=== PATIENT | male | born 1960 | race African-American/Black ===

== ENCOUNTER 2020-03-26 11:31 | Day surgery (SDC) | payer OTHER ==
--- NOTE | 2020-03-25 08:52 | NUR ---
RECEIVED CALL FROM OR. D-DIMER RESULTS REVIEWED BY ANESTHESIOLOGIST DR DONNELLY. NO FURTHER ORDERS AT THIS TIME.
--- NOTE | 2020-03-25 09:17 | NUR ---
PREOP LABS DRAWN ON 03-18-20. RESULTS REVIEWED WITH OR AND DR QUIÑONES. OK TO USE FOR SURGERY 03-26-20. NO FURTHER ORDERS AT THIS TIME.
[~2020-03-26] VITALS: Ht 175.3 cm; Wt 134.7 kg
[~2020-03-26 11:31] MED LIST: ASPIR 8181 MG PO
[2020-03-26 12:27] VITALS: BP 139/85
[2020-03-26] MEDS ORDERED: ZIPSOR25 MG PO (15:25)
[2020-03-26] MEDS ORDERED: GEMFIBROZIL600 MG PO (15:26)
[2020-03-26] MEDS ORDERED: TOPROL XL100 MG PO (15:26)
[2020-03-26] MEDS ORDERED: LASIX40 MG PO (15:26)
[2020-03-26] MEDS ORDERED: PRILOSEC OTC20 M1 PO (15:27)
[2020-03-26] MEDS ORDERED: ALDACTONE25 MG PO (15:27)
[2020-03-26] MEDS ORDERED: PRO30 PO (15:27)
[2020-03-26] MEDS ORDERED: NOR10T PO (15:28)
--- NOTE | 2020-03-26 21:04 | NUR ---
PT C/O ABDOMINAL PAIN AND NAUSEA. GAVE PT MORPHINE IVP FOR PAIN AND ZOFRAN IVP FOR NAUSEA. PT TOLERATED IT WELL. WILL CONTINUE TO MONITOR.
--- NOTE | 2020-03-26 21:37 | NUR ---
PT RESTING IN BED. SURGICAL WOUND WITH DRESSING NOTED ON THE LEFT KNEE. POLAR MACHINE AND TASIA WOUND VAC NOTED ON THE LEFT KNEE. NO C/O PAIN THUS FAR. IV INTACT ON THE RAC. MADE PT COMFORTABLE. PLACED CALL LIGHT WITH IN REACH. WILL CONTINUE TO MONITOR.
[2020-03-26 22:08] VITALS: BP 124/82
--- NOTE | 2020-03-26 22:23 | NUR ---
RECEIVED PT FROM OR. PT ADMIT FOR OSTEOARTHRITIS LEFT KNEE. S/P LEFT TOTAL KNEE REPLACEMENT. PT IS A/O X4, VERBAL RESPONSIVE. LUNG SOUND CLEAR BILATERAL, NO COUGH, NO SOB. PT IS ON 2L/MIN O2 VIA NC, PO2 93%, BOWEL SOUND PRESENT ALL 4 QUADRANTS, NO DISTENTION, NO TENDER. PEDAL PULSE PRESENT BOTH FEET. DRY LEFT KNEE COVER WITH DRY DRESSING. AND TASIA WOUND VAC IN PLACE. POLAR MACHINE AT TOP OF KNEE. IV AT RIGHT AC, NO LEAKING, NO INFILTRATION, ALL ADLS ASSIST, ALL NEED MET, CALL LIGHT IN REACH, WILL CONTINUE TO MONITOR.
--- NOTE | 2020-03-27 01:44 | NUR ---
PT RESTING WITH EYES CLOSED. NO DISTRESS AND DISCOMFORT NOTED. WILL CONTINUE TO MONITOR.
--- NOTE | 2020-03-27 02:47 | NUR ---
PT C/O LEFT KNEE PAIN. GAVE PT OXYCODONE PO. PT TOLERATED IT WELL. WILL CONTINUE TO MONITOR.
[2020-03-27 05:38] VITALS: BP 141/89
--- NOTE | 2020-03-27 06:45 | NUR ---
PT QUIET AND RESTING. DRESSING ON THE LEFT KNEE WITH POLAR MACHINE AND TASIA WOUND VAC C/D/I. C/O 02/14 PAIN. DENIES NEED FOR PAIN MEDICATION THUS FAR. MADE PT COMFORTABLE. WILL ENDORSE TO THE AM NURSE ACCORDINGLY.
--- NOTE | 2020-03-27 07:30 | NUR ---
RECIEVED REPORT FROM [facility] NURSE. PATIENT CURRENTLY AWAKE ALERT AND ORIENTED X 4. PATIENT IS STATUS POST LEFT TOTAL KNEE REPLACEMENT ON 03-26-20. POLAR MACHINE CURRENTLY PLACED TO LEFT KNEE AND TASIA WOUND VAC ALSO IN PLACE. LR INFUSING AT 80cc/HOUR TO THE RAC. PATIENT IS CURRENTLY ON 2 LITER NASAL CANNULA SATURATING AT 93%. NO REPORT OF PAIN AT THIS TIME. FALL PROTOCOL IN PLACE. BED IN THE LOW POSITION. CALL LIGHT WITHIN REACH. BED ALARM ACTIVATED.
[2020-03-27 08:18] VITALS: BP 126/80
[2020-03-27 09:17] LABS: CALCIUM 7.6 mg/dL (8.5-10.1); CARBON DIOXIDE 24.7 mmol/L (21-32); CHLORIDE SERUM 99 mmol/L (98-107); CREATININE SERUM 0.8 mg/dL (0.7-1.3); GFR1 > 60 mL/min; GLUCOSE SERUM 132 mg/dL (74-106); POTASSIUM SERUM 4.2 mmol/L (3.5-5.1); SODIUM SERUM 132 mmol/L (136-145)
[2020-03-27 09:53] LABS: BASOPHIL % 0.3 % (0-2); PLATELET COUNT 146 x10^3mcL (130-400)
[2020-03-27 14:03] VITALS: BP 126/80
--- NOTE | 2020-03-27 15:45 | NUR ---
DISCHARGE EDUCATION AND PRESCRIPTIONS PROVIDED TO PATIENT. PRESCRIPTION FOR PAIN MEDICATION PHYSICALLY HANDED TO PATIENT AT BEDSIDE AT [address] QUIÑONES. PATIENT VERBALIZES UNDERSTANDING OF POST OP CARE FOR LEFT KNEE REPLACEMENT. ALL QUESTIONS AND CONCERNS ADDEESSED. IV CATH REMOVED INTACT IN PREPARATION FOR DISCHARGE. NO REPORT OF PAIN AT THIS TIME. PATIENT ACCOMPANIED TO THE LOBBY IN WHEELCHAIR BY TWO RNS AND DIRECTOR MARKETING. PATIENT RECIEVED FROM HOSPITAL BY .
== END 2020-03-27 15:45 | disposition home or self-care (01) ==
LOC: OR 11:31 → MU 15:45 → OR 03-27 15:45
PROVIDERS: ATTEND Orthopaedic Surgery
DX: M17.12 Unilateral primary osteoarthritis, left knee (principal); I10 Essential (primary) hypertension; E66.9 Obesity, unspecified; Z68.38 Body mass index [BMI] 38.0-38.9, adult; Z79.899 Other long term (current) drug therapy
CPT/HCPCS: 97112-GP; C1713; C1776; G0378; J0690; J1170; J1885; J2175; J2250; J2270; J2405; J2704; J3010; J3490; J7030; J7120; Q0092

== ENCOUNTER 2020-05-18 08:50 | Inpatient (IN) | payer OTHER ==
[~2020-05-18] VITALS: Ht 180.3 cm; Wt 127.0 kg
--- NOTE | 2020-05-18 07:36 | NUR ---
DR. QUIÑONES WAS MADE AWARE THAT THE LAB AND COVID19 RESULT AND H&P HAVE BEEN UNABLE TO OBTAINED FOR THE PATIENT YET.
[~2020-05-18 08:50] MED LIST changes: +ALDACTONE25 MG PO; +GEMFIBROZIL600 MG PO; +LASIX40 MG PO; +NOR10T PO; +PRILOSEC OTC20 M1 PO; +PRO30 PO; +TOPROL XL100 MG PO; +ZIPSOR25 MG PO
[2020-05-18 09:09] VITALS: BP 120/76
[2020-05-18 10:07] LABS: PLATELET COUNT 224 x10^3mcL (130-400); RED CELL DISTRIBUTION WIDTH 15.6 % (11.5-14.5)
[2020-05-18 10:16] LABS: C REACTIVE PROTEIN 0.4 mg/dL (<=0.9); CALCIUM 8.7 mg/dL (8.5-10.1); CARBON DIOXIDE 22.2 mmol/L (21-32); CHLORIDE SERUM 102 mmol/L (98-107); CREATININE SERUM 0.8 mg/dL (0.7-1.3); GFR1 > 60 mL/min; GLUCOSE SERUM 121 mg/dL (74-106); POTASSIUM SERUM 3.8 mmol/L (3.5-5.1); SODIUM SERUM 139 mmol/L (136-145)
[2020-05-18 10:43] LABS: ERYTHROCYTE SED RATE 36 mm/hr (0-20)
[2020-05-18 11:53] LABS: rbc morphology (normal/abnorm) NORMAL (NORMAL)
--- NOTE | 2020-05-18 15:05 | NUR ---
RECEIVED PT VIA BED FROM O/R, ACCOMPANIED BY 3 RNs. PT A/A/O X 4, CALM, COOPERATIVE TO CARE; PT STATES THAT HE DRINKS A "TALL GLASS OF VODKA WITH (JUICE) EVERY NIGHT. HR 122, DENIES CHEST PAIN OR DISCOMFORT AT THIS TIME. LUNGS CTAB, CHEST RISING EVENLY, 2LNC, 95%, NO ACUTE RESPIRATORY DISTRESS NOTED. POOR PO INTAKE > 3 DAYS. PT W/ GENERALIZED WEAKNESS, AMBULATORY @ BASELINE, FALL RISK PROTOCOL IN PLACE. PT IS S/P I/D OF L KNEE W/ HARDWARE CHANGE; SX INCISION TO L KNEE W/ MULTIPLE APRYL W/ TASIA WOUND VAC INSTALLED (NO DRAINAGE AT THIS TIME), DRESSINGS CDI, ALL SECURED W/ POLAR ICE MACHINE; PT C/O CONSTANT L KNEE SHARP PAIN 8/10, EXACERBATED BY MOVEMENT, RELIEVED BY PAIN MEDICATION. IV SITE RH 22G, CDI. ORIENTED PT TO ROOM, BED CONTROLS, CALL LIGHT SYSTEM. SIDE RAILS UP X 2, BED IN LOW POSITION. WILL CONTINUE TO MONITOR.
--- NOTE | 2020-05-18 16:04 | NUR ---
ALL PATIENT'S BELONGINGS INCLUDING WHEELCHAIR (EXCEPT THE CELL PHONE PATIENT IS HAVING WITH HIM NOW) WERE HANDED TO THE PATIENT'S , SABRA. ALSO, THE WAS INFORMED THE PATIENT WAS ADMITTED TO ROOM 235A ON MST UNIT.
--- NOTE | 2020-05-18 17:13 | NUR ---
P.T. NOTES RECEIVED P.T. EVAL ORDER, Pt REFUSED W/ P.T., STATES HE IS STILL IN A LOT OF PAIN, RN AWARE, Pt APPRECIATIVE; WILL FF UP TOMORROW, ALL LINES INTACT, BED ALARM ON, CALL LYLE, PHONE, TABLE IN REACH; Pt STATES "THERE IS NO WAY I AM GETTING UP TODAY"; AGREEABLE FOR TOMORROW.
--- NOTE | 2020-05-18 17:15 | NUR ---
NOTED THAT REGULAR DIET ORDER FOR PT STARTS 05/19/20 DINNER TIME; OBTAINED VERBAL ORDER FROM DR QUIÑONES TO CHANGE START DATE TO 05/18/20 DINNER TIME; ORDER NOTED AND CARRIED OUT.
--- NOTE | 2020-05-18 17:23 | NUR ---
PT C/O CONT L KNEE SHARP PAIN 8/10, THAT IS EXACERBATED BY MOVEMENT; PT GIVEN DILAUDID 1MG IVP; DARKENED ROOM, TURNED OFF TV, AND INSTRUCTED PT TO CLOSE EYES, DO DEEP BREATHING, AND TRY TO RELAX. WILL CONTINUE TO MONITOR.
--- NOTE | 2020-05-18 17:53 | NUR ---
PT IN BED, WATCHING TV AND HAVING DINNER; PT STATES THAT PAIN LEVEL TO L KNEE WENT DOWN TO 5/10, CONSTANT/SHARP AFTER GETTING DILAUDID 30 MINUTES AGO; TASIA WOUND VAC IN PLACE ALONG W/ POLAR ICE MACHINE. IV SITE TO RH 22G, CDI, LR RUNNING @ 80ML/HR. SIDE RAILS UP X 2, BED IN LOW POSITION, CALL LIGHT WITHIN REACH. WILL ENDORSE TO NOC SHIFT.
[2020-05-18 18:00] VITALS: BP 127/75
[2020-05-18 22:05] VITALS: BP 148/84
[2020-05-19 06:20] VITALS: BP 127/76
--- NOTE | 2020-05-19 07:10 | NUR ---
SEEN PATIENT AOX4, NOT IN DISTRESS, MEDSURG, PALPABLE PULSES, NO EDEMA, CTA ON BLF, NO SOB, +BS, VOIDS WTIH NO DYSURIA, GENERALIZED WEAKNESS, SURGICAL NCISION TO L KNEE WITH TASIA WOUND JACK AND POLAR ICE MACHINE IN PLACE, PAIN AT L KNEE 5/10. MEDICATED WITH DILAUDID. IV INTACT AND PATENT, NO REDNESS OR SWELLING AT RH. CALL LIGHT WITHIN REACH, BED AT LOWEST POSITION SIDE RAILS UP.
[2020-05-19 07:19] LABS: BASOPHIL % 0.4 % (0-2); PLATELET COUNT 173 x10^3mcL (130-400)
[2020-05-19 07:20] LABS: RED CELL DISTRIBUTION WIDTH 15.3 % (11.5-14.5)
[2020-05-19 07:22] LABS: CALCIUM 8.2 mg/dL (8.5-10.1); CARBON DIOXIDE 25.5 mmol/L (21-32); CHLORIDE SERUM 100 mmol/L (98-107); CREATININE SERUM 0.8 mg/dL (0.7-1.3); GFR1 > 60 mL/min; GLUCOSE SERUM 139 mg/dL (74-106); POTASSIUM SERUM 4.2 mmol/L (3.5-5.1); SODIUM SERUM 132 mmol/L (136-145)
[2020-05-19 07:25] LABS: ALBUMIN 2.4 g/dL (3.4-5.0); C REACTIVE PROTEIN 0.2 mg/dL (<=0.9)
--- NOTE | 2020-05-19 08:25 | NUR ---
MEDICATIONS GIVEN PER EMAR.
[2020-05-19 08:31] VITALS: BP 123/71
--- NOTE | 2020-05-19 10:04 | NUR ---
DILAUDID IVP GIVEN PER EMAR FOR LLE PAIN 05/17.
[2020-05-19 11:57] VITALS: BP 139/86
--- NOTE | 2020-05-19 12:12 | NUR ---
CALLED PHARMACIST AND SPOKE WITH VALENTINE BRYANT REGARDING CUBICIN. PER ANNETTE, THEY ARE MIXING THE CUBICIN AND WILL BRING IT UP .
--- NOTE | 2020-05-19 13:06 | NUR ---
CUBICIN IVPB INFUSING WELL AT 100CC/HR. NO REDNESS OR SWELLING.
--- NOTE | 2020-05-19 14:02 | NUR ---
NORCO PO GIVEN FOR LLE PAIN 05/17.
[2020-05-19 16:47] VITALS: BP 144/85
[2020-05-19 17:51] VITALS: BP 137/79
--- NOTE | 2020-05-19 19:29 | NUR ---
RECIEVED PT FROM PREVIOUS SHIFT NURSE. PT RESTING COMFORTABLY W/ HOB ELEVATED. PT AOX4, ABLE TO FOLLOW COMMANDS, DENIES DOTSON, N/V, DIZZINESS, OR PAIN, NO FACIAL DROOPING NOTED, SPEECH CLEAR, AND CALM AND COOPERATIVE. RR EVEN AND UNLABORED ON 2L/NC, CHEST RISING EQUALLY, DENEIS SOB OR DIFFICULTY BREATHING. DENIES CHEST PAIN OR PRESSURE. IV RH WNL, LR RUNNING AT 80ML/HR. SXI NOTED L KNEE W/ TASIA WOUND VAC, AND POLAR ICE MACHINE NOTED, NO INDICATION TO FILL AT THE MOMENT. BED IN LOWEST POSITION, SIDE RAILS UP X2, AND CALL LIGHT WITHIN REACH. WILL CONTINUE TO MONITOR.
[2020-05-19 19:54] VITALS: BP 144/77
--- NOTE | 2020-05-20 01:14 | NUR ---
PT RESTING COMFORTABLY IN BED, EASILY AROUSABLE. RR EVEN AND UNLABORED ON 2L/NC, CHEST RISING EQUALLY. NO SIGNS OF ACUTE CHANGE OR DISTRESS NOTED. BED IN LOWEST POSITION, SIDE RAILS UP X2, AND CALL LIGHT WITHIN REACH. WILL CONTINUE TO MONITOR.
[2020-05-20 04:48] VITALS: BP 143/78
--- NOTE | 2020-05-20 06:25 | NUR ---
PT RESTING COMFORTABLY IN BED, EASILY AROUSABLE. AOX4, ABLE TO FOLLOW COMMANDS, DENIES DOTSON, N/V, DIZZINESS, OR PAIN AT THE MOMENT, NO FACIAL DROOPING NOTED, SPEECH CLEAR, CALM AND COOPERATE W/ CARE. RR EVEN AND UNLABORED ON RA, CHEST RISING EQUALLY, DENIES SOB OR DIFFICLTY BREATHING. DENIES CHEST PAIN OR PRESSURE. IV RH WNL, NO ERYTHEMA, EDEMA, OR DRAINAGE. TASIA WOUND VAC NOTED TO L KNEE DRESSING CDI, POLAR ICE MACHINE IN PLACE. BED IN LOWEST POSITION, SIDE RAILS UP X2, AND CALL LIGHT WITHIN REACH. WILL CONTINUE TO MONITOR.
[2020-05-20 06:36] LABS: CHLORIDE SERUM 100 mmol/L (98-107); CREATININE SERUM 0.8 mg/dL (0.7-1.3); GFR1 > 60 mL/min; GLUCOSE SERUM 119 mg/dL (74-106); POTASSIUM SERUM 3.7 mmol/L (3.5-5.1); SODIUM SERUM 134 mmol/L (136-145)
[2020-05-20 06:45] LABS: BASOPHIL % 0.3 % (0-2); PLATELET COUNT 168 x10^3mcL (130-400); RED CELL DISTRIBUTION WIDTH 14.9 % (11.5-14.5)
--- NOTE | 2020-05-20 07:15 | NUR ---
RECEIVED REPORT FROM N[facility] RN. PATIENT AWAKE, A&OX4, RESTING IN BED. DISCUSSED PLAN OF CARE WITH PATIENT. PLAN FOR PAIN MANAGEMENT AND TO WORK WITH PT TODAY. CALL LIGHT AND BEDSIDE TABLE WITHIN REACH. WILL CONTINUE TO MONITOR.
[2020-05-20 07:30] VITALS: BP 129/83
--- NOTE | 2020-05-20 13:08 | NUR ---
PATIENT REMAINS A&OX4, VITALS STABLE, PATIENT GOT OOB AND AMBULATED WITH PHYSICAL THERAPY TODAY AND TOLERATED IT WELL, PATIENT WAS PREMEDICATED WITH DILAUDID IVP. PAIN MANAGED WITH NORCO Q6H AND DILAUDID FOR BREAKTHROUGH PAIN. NO OTHER CONCERNS. IV ABX INFUSED PER ORDE. WILL CONTINUE TO MONITOR
--- NOTE | 2020-05-20 15:00 | NUR ---
Initial Nutrition Assessment: 235A OFELIA BALDWIN 59M HR T: poor PO intake > 3 days Dx: left knee prosthetic joint infection PMHx: No H&P available. PSHx: Per operative report on (05/18): Left prosthetic knee debridement and implant retention Labs: (05/20) Na 134L, BG 119H, Ca 8.0L, H/H 10.5/32L Meds: Aspirin, Colace, Cubicin, Lactated Ringers, Lyrcia, Celebrex PRN Meds: Dilaudid, [place], Senokot, Tylenol, Zofran Diet: regular PO intake since admission: (05/19) B: 85, L: 95, D: 95 (05/20) B: 100 ; average PO intake 94% for 4 meals Ht: 180 cm / 5'11 Wt: 127 kg / 280 lbs BMI:39.1 Bed scale: 300 lbs IBW: 172 lbs / 78 kg %IBW: 163% ABW:199lbs / 90.5kg UBW: per pt, was told 257 at admission Age: 59 Food Allergies: NKFA Skin condition: Sx incision to L knee w/ multiple ruthy, dressings w/ hernando wound vac, secute in place w/ polar ice machine Min: 19 Edema: none noted Last BM: 05/18 Per H&P (none available at this time) RD Note (05/20): Pt was sitting with right leg off the bed during assessment. Bed scale weigh was 300 lbs. Per pt, the most recent weight he is aware of was 257 when the doctor told him at admission. Pt is not experiencing any GI distress. He does not have any issues chewing or swallowing. His appetite has been good but he is not able to eat a lot since he had the lap band procedure done 3 years ago. He takes Vitamin A, C, E and zinc supplements at home. He mentions that at home he is not able to eat much of scrambled eggs and some greens because it makes him feel uncomfortable with the lap band. Pt exercises with weights and cardio on a daily basis. Based on his average PO intake of 94%, he consumes 2534 kcal and 113 g protein. This meets his estimated energy and protein needs by 100%. Problem with: N/V/D/C: no per pt Problems with: Chewing: Swallowing: none per pt Current appetite: good per pt Recent wt change: none per pt %wt change: n/a Vitamin/Supplement use: Vitamin A, C, E, zinc Special diet at home: eats in small amounts d/t lap band Physical activity: exercise daily Nutrition education given (specify specific nutrition education and handout given): No education was given at this time. Food-drug interactions? Education given? n/a Estimated Nutritional Needs Based on adjusted body weight (90.5kg) Energy: 2262 - 2715 kcal/day (25-30 kcal/kg for maintenance) Protein: 72 - 90.5 g/day (0.8-1 g/kg for maintenance) Fluid: 2262 - 2715 mL/day (1 mL/kcal) Nutrition Diagnosis: Intervention 1. Recommend continue regular diet as tolerated. Monitor/Evaluate Goal: PO intake at least 75% of estimated needs Monitor: PO intake, Labs, GI function F/U in 3-5 days as moderate risk (05/23-)
--- NOTE | 2020-05-20 15:02 | NUR ---
1. Recommend continue regular diet as tolerated.
[2020-05-20 16:02] VITALS: BP 123/73
--- NOTE | 2020-05-20 16:10 | NUR ---
DIETITIAN CO-SIGN The Nutrition Notes documented by the Asphalt Roller Operator have been reviewed. Reviewed/Co-Signed by: Bethel Soto Documentation Done by: Keon Newell
--- NOTE | 2020-05-20 17:47 | NUR ---
Patient a&ox4, room air, vitals stable, voiding in urinal. pain managed with po norco and dilaudid ivp. patient reports 3/10 with current pain regimen. patient got OOB with physical therapy. plan for picc line placement. spoke with picc line nurse luis at [phone] and he is refusing to place picc line until MD signs the consent. will call dr. Vivas and inform. all concerns addressed. call light and bedside table within reach. needs attended.
--- NOTE | 2020-05-20 19:36 | NUR ---
PICC LINE NURSE AT BEDSIDE.
--- NOTE | 2020-05-20 19:36 | NUR ---
PT RESTING COMFORTABLY IN BED, EASILY AROUSABLE. A0X4, ABLE TO FOLLOW COMMANDS, NO FACIAL DROOPING NOTED, SPEECH CLEAR, DENIES DOTSON,N/V, DIZZINESS, OR PAIN AT THE MOMENT. PT CALM AND COOPERATIVE. RR EVEN AND UNLABORED ON RA, CHEST RISING EQUALLY, DENEIS SOB OR DIFFICULTY BREATHING, CHEST RISING EQUALLY. DENIES CHEST PAIN OR PRESSURE. IV RH WNL, LR RUNNING AT 80ML/HR. LLE S WOUND NOTED W/ TASIA WOUND VAC NOTED AND [facility] ICE MACHINE NOTED. PICC LINE INSERTION IN PLACE. BED IN LOWEST POSISTION, SIDE RAILS UP X2, AND CALL LIGHT WITHIN REACH. WILL CONTINUE TO MONITOR.
--- NOTE | 2020-05-20 19:51 | NUR ---
X-RAY PAGED FOR S/P PICC LINE INSERTION.
--- NOTE | 2020-05-20 20:09 | NUR ---
PICC LINE INSERTION COMPLETED, PICC NOTED TO [place] 2-LUMEN. PENDING CXR VERIFICATION.
[2020-05-20 20:33] VITALS: BP 149/87
--- NOTE | 2020-05-20 22:17 | NUR ---
NEW ORDERS RECIEVED FROM DR. GONZALEZ. SEE EMAR, WILL CARRY OUT ORDERS.
--- NOTE | 2020-05-20 22:17 | NUR ---
DR. QUIÑONES INFORMED OF CXR FOR PICC LINE VERIFICATION. OK TO USE PER DR. QUIÑONES.
--- NOTE | 2020-05-21 04:30 | NUR ---
PT RESTING COMFORTABLY IN BED, EASILY AROUSABLE. RR EVEN AND UNLABORED ON RA, CHEST RISING EQUALLY. LLE SXI W/ TASIA WOUND VAC NOTED, DRESSING CDI W/ POLAR ICE MACHINE NOTED. NO SIGNS OF ACUTE CHANGE OR DISTRESS NOTED. BED IN LOWEST POSITION, SIDE RAILS UP X2, AND CALL LIGHT WITHIN REACH. WILL CONTINUE TO MONITOR.
[2020-05-21 05:52] VITALS: BP 155/94
--- NOTE | 2020-05-21 06:36 | NUR ---
PT RESTING COMFORTABLY IN BED, EASILY AROUSABLE, AOX4, ABLE TO FOLLOW COMMANDS, SPEECH CLEAR, NO FACIAL DROOPING NOTED, DENIES DOTSON, N/V, DIZZINESS, OR PAIN AT THE MOMENT. RR EVEN AND UNLABORED ON RA, CHEST RISING EQUALLY, DENIES SOB OR DIFFICULTY BREATHING. DENIES CHEST PAIN OR PRESSURE. PICC LINE NOTED TO [place], BOTH PORTS PATENT, BLOOD RETURN VISIBLE IN BOTH PORTS, DRESSING CDI, NO ERYTHEMA, EDEMA, OR DRAINAGE NOTED, LR RUNNING AT 80ML/HR. SXI DRESSING NOTED TO LLE DRESSING CDI, TASIA WOUND DRESSING NOTED, AND POLAR ICE MACHINE AT BEDSIDE. ALL NEEDS MET THROUGHOUT THE SHIFT. BED IN LOWEST POSITION, SIDE RAILS UP X2, AND CALL LIGHT WITHIN REACH. WILL ENDORSE CARE TO ONCOMING SHIFT NURSE, AND WILL CONTINUE TO MONITOR.
[2020-05-21 08:08] LABS: CALCIUM 8.3 mg/dL (8.5-10.1); CARBON DIOXIDE 28.9 mmol/L (21-32); CHLORIDE SERUM 104 mmol/L (98-107); CREATININE SERUM 0.7 mg/dL (0.7-1.3); GFR1 > 60 mL/min; GLUCOSE SERUM 86 mg/dL (74-106); POTASSIUM SERUM 3.9 mmol/L (3.5-5.1); SODIUM SERUM 136 mmol/L (136-145)
--- NOTE | 2020-05-21 08:10 | NUR ---
RECEIVED REPORT FROM [facility] RN. PATIENT AWAKE, SITTING IN THE BED, "EXCITIED TO LEAVE TODAY". PATIENT RECEIVED PICC LINE OVERNIGHT. WIPES BROUGHT TO PATIENT TO CLEAN UP PER HIS REQUEST. DISCUSSED PLAN OF CARE WITH THE PATIENT. CALL LIGTH AND BEDSIDE TABLE WITHIN REACH. WILL CONTINUE TO MONITOR
[2020-05-21 08:31] LABS: BASOPHIL % 0.3 % (0-2); PLATELET COUNT 160 x10^3mcL (130-400)
[2020-05-21 08:32] LABS: RED CELL DISTRIBUTION WIDTH 15.2 % (11.5-14.5)
[2020-05-21 09:16] VITALS: BP 132/78
--- NOTE | 2020-05-21 12:47 | NUR ---
PATIENT REMAINS A&OX4, ROOM AIR, VITALS STABLE, VOIDING, AMBULATED IN HALLWAY WITH PT TODAY AND TOLERATED WELL. POLAR ICE CHANGED [facility] NEW ICE. SPOKE WITH DR. QUIÑONES REGARDING DISCHARGE MEDS. CM INFORMED AND WORKING ON HOME HEALTH IV MEDS. PATIENT UPDATED AND HAPPY. PAIN MEDICATION GIVEN PRN. WILL CONTINUE TO MONITOR.
[2020-05-21 16:36] VITALS: BP 132/78
[2020-05-21 17:21] VITALS: BP 124/81
--- NOTE | 2020-05-21 18:02 | NUR ---
patient admitted for left knee prosthetic joint infection. patient a&ox4, room air, vitals stable, voiding in urinal, tolerating diet, pain controlled with po norco and prn dilaudid ivp. discharge instructions printed and reviewed with patient. all medications discussed. per patient the has the medication that was delivered from [facility]. picc line remains in place. patient medicated prior to discharge. all quesitons and concerns addressed. patient left the unit with all belongings in no apparent distress via wheelchair.
== END 2020-05-21 18:00 | disposition home or self-care (01) | DRG 320 ==
LOC: DS 08:50 → OR 10:30 → MU 13:47
PROVIDERS: ADMIT Orthopaedic Surgery; ATTEND Orthopaedic Surgery
PROC: 0SPD0JZ Removal of Synthetic Substitute from Left Knee Joint, Open Approach (ICD-10-PCS; principal; 2020-05-18 10:30)
DX: T84.54XA Infection and inflammatory reaction due to internal left knee prosthesis, initial encounter (principal); Y83.8 Other surgical procedures as the cause of abnormal reaction of the patient, or of later complication, without mention of misadventure at the time of the procedure; Y92.89 Other specified places as the place of occurrence of the external cause
CPT/HCPCS: 97110-GP; 97116-GP; 97530-GP; G0378; J0131; J0696; J0878; J1170; J1885; J2175; J2250; J2405; J3010; J3370; J7042; J7120; Q0092